=== PATIENT | male | born 1990 | race Caucasian/White ===

== ENCOUNTER 2016-09-08 12:03 | Emergency (ER) | payer BC ==
--- NOTE | ~2016-09-08 | CR21 ---
[facility] A Service of [facility] & [facility] RADIOLOGY TEXT RESULTS PATIENT: VIBHA ROBLES LOCATION: SED : 86 UNIT #: [id number] AGE: [address]: Migue Woo SEX: M ORDER DR: [id number] [address] [address] [id number] E MR#: [id number] Acc #: [id number] NAME: VIBHA ROBLES : 1990 SEX: M STUDY DATE/TIME: 09/08/2016 1200 UNIT: SED ROOM: STUDY DESCRIPTION: CR Ankle Min 3 Views Rt Attending Physician: Migue Woo P.A.-C. Ordering Physician: Migue Woo P.A.-C. Primary Care Physician: Isaias Craft M.D. MEDICAL IMAGING REPORT This report is preliminary unless electronic signature is present. EXAM Right ankle, 3 views, 09/08/2016, 1200 hours. CLINICAL HISTORY 25-year-old man who twisted foot and ankle 1 hour prior to admission. Patient injured ankle stepping out of a shed. Pain and swelling. COMPARISON None FINDINGS AP, lateral, and oblique views demonstrate lateral soft tissue swelling over the distal fibula. There are small ossicles adjacent to the distal tip of the fibula which appear well corticated and are favored to be old. No definite acute fracture or dislocation. IMPRESSION There is lateral soft tissue swelling over the distal fibula with a few small ossicles adjacent to the distal tip of the fibula which appear to be well corticated and are favored to be old. No definite acute fracture. No disruption of the ankle mortise. STAT * RESULT Dictated by... Milady Head M.D. THIS IS AN ELECTRONICALLY VERIFIED REPORT Milady Head M.D. at 09/08/2016 2:07 PM SMM/roxiew ST[facility]. [facility] A Service of [facility] & [facility] RADIOLOGY TEXT RESULTS PATIENT: VIBHA ROBLES LOCATION: SED : 86 UNIT #: [id number] AGE: [address]: Migue Woo PAC SEX: M ORDER DR: TD: 09/08/2016 12:21 JOB #: [id number] MEDICAL IMAGING REPORT Page 1 of 1
--- NOTE | ~2016-09-08 | CR127 ---
[facility]. [facility] A Service of [facility] & [facility] RADIOLOGY TEXT RESULTS PATIENT: VIBHA ROBLES LOCATION: SED : [birth year] UNIT #: [id number] AGE: [address]: Migue Woo SEX: M ORDER DR: [id number] [place] [address] [id number] E MR#: [id number] Acc #: [id number] NAME: VIBHA ROBLES : 1990 SEX: M STUDY DATE/TIME: UNIT: SED ROOM: STUDY DESCRIPTION: CR Foot Complete Min 3 View Rt Attending Physician: Migue Woo P.A.-C. Ordering Physician: Migue Woo P.A.-C. Primary Care Physician: Isaias Craft MEDICAL IMAGING REPORT This report is preliminary unless electronic signature is present. EXAM Right foot 3 views 09/08/2016 12 o'clock hours HISTORY Patient twisted ankle 1 hour prior to admission when stepping out of a shed. Pain and swelling of the foot and ankle. COMPARISON None FINDINGS AP, lateral and oblique views of the foot demonstrate normal bone density. There is no fracture or dislocation. There is degenerative change at the first metatarsal-phalangeal joint. IMPRESSION Degenerative change at the first MTP joint. No fracture or dislocation. Dictated by... Milady Head M.D. THIS IS AN ELECTRONICALLY VERIFIED REPORT Milady Head M.D. at 09/08/2016 2:07 PM GUSTAVO/cally TD: 09/08/2016 13:50 JOB #: [id number] MEDICAL IMAGING REPORT Page 1 of 1
[~2016-09-08 12:03] MED LIST: AMOXICILLIN PO; CIPRO PO; CREON 101 CA1 DOB; FLAGYL PO; HYDROCODONE BIT1 TAB PO; PAIN MED; PRILOSEC PO; ROBAXIN500 MG PO; TRAZODONE HCL100 MG PO; TYLENOL #3 PO; VITAMIN C100 M1 PO; VOLTAREN50 MG PO; ZOFRAN ODT4 MG PO; ZOFRAN PO; ZOFRANODT PO; ZYRTEC PO
== END 2016-09-08 12:32 | disposition home or self-care (01) ==
LOC: SED 12:03
DX: S93.401A Sprain of unspecified ligament of right ankle, initial encounter (principal); K85.90 Acute pancreatitis without necrosis or infection, unspecified; F17.200 Nicotine dependence, unspecified, uncomplicated; X50.1XXA Overexertion from prolonged static or awkward postures, initial encounter; Y92.9 Unspecified place or not applicable
CPT/HCPCS: 29540; 73610; 73630; 99283